=== PATIENT | female | born 1985 | race Two or more races ===

== ENCOUNTER 2017-12-19 02:30 | Emergency (ER) | payer OTHER ==
[~2017-12-19] VITALS: Ht 152.4 cm; Wt 78.0 kg
[2017-12-19] MEDS ORDERED: HUMULIN N100 UNIT/2 (02:40)
[2017-12-19] MEDS ORDERED: GABAPENTIN100 MG (02:40)
== END 2017-12-19 10:51 | disposition home or self-care (01) ==
LOC: ER 02:30
DX: R20.2 Paresthesia of skin (principal)